=== PATIENT | female | born 1980 | race African-American/Black ===

== ENCOUNTER 2016-02-20 09:11 | Emergency (ER) | payer OTHER ==
[2016-02-20 09:18] VITALS: BP 152/87
--- NOTE | 2016-02-20 09:57 | Diag Imaging Result Document ---
PROCEDURE NAME: SHOULDER-RIGHT - 02/20/2016 RIGHT SHOULDER: INDICATION: Fall. FINDINGS: No fracture or dislocation is identified. There is mild degenerative spurring of the acromioclavicular joint. There is cystic change within the greater tuberosity. IMPRESSION: No acute abnormalities.
--- NOTE | 2016-02-20 09:58 | Diag Imaging Result Document ---
PROCEDURE NAME: HUMERUS-RIGHT - 02/20/2016 RIGHT HUMERUS: INDICATION: Fall. FINDINGS: No fracture or dislocation is identified. IMPRESSION: No acute abnormality is appreciated.
--- NOTE | 2016-02-20 10:00 | Diag Imaging Result Document ---
PROCEDURE NAME: ELBOW COMPLETE RIGHT - 02/20/2016 RIGHT ELBOW, THREE VIEWS: INDICATION: Fall. FINDINGS: No effusion, fracture, or dislocation is appreciated. IMPRESSION: No acute abnormalities are appreciated.
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
== END 2016-02-20 10:54 | disposition home or self-care (01) ==
LOC: P.ED 09:11
DX: S43.401A Unspecified sprain of right shoulder joint, initial encounter (principal); M25.511 Pain in right shoulder; I10 Essential (primary) hypertension; E78.5 Hyperlipidemia, unspecified; Z79.899 Other long term (current) drug therapy; W19.XXXA Unspecified fall, initial encounter
CPT/HCPCS: 99283